=== PATIENT | female | born 1965 | race Caucasian/White ===

== ENCOUNTER 2023-12-20 08:23 | Emergency (ER) | payer OTHER, SELFPAY ==
--- NOTE | ~2023-12-20 | XR_ITS ---
EXAMINATION: XR foot RT min 3V DATE: 12/20/2023 08:44 INDICATION: Right foot injury. TECHNIQUE: 4 views of right foot were obtained. COMPARISON: None. FINDINGS: There are changes of bunionectomy. There is an oblique fracture of neck of fifth metatarsal . The distal fracture fragment demonstrates 2 mm medial plantar displacement. 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 There is an enthe sophyte at plantar aspect of calcaneal tuberosity. IMPRESSION: 1. Oblique fracture of neck of fifth metatarsal. Reviewed, dictated and finalized at location A.
--- NOTE | 2023-12-20 08:27 | ED.LOWEXIN ---
HPI - Extremity Injury (Lower) General Chief Complaint: Extremity Injury, Lower Stated Complaint: twisted right foot Time Seen by Provider: 12/20/23 08:27 Source: patient Mode of arrival: ambulatory Limitations: no limitations History of Present Illness HPI Narrative: Vanda is a 58 year old female patient presenting to the clinic today with complaints of pain to the right foot after twisting it yesterday. She reports she is having pain over the right 5th metatarsal. Bruising and swelling noted. Related Data Home Medications Medication Instructions Recorded Confirmed escitalopram oxalate 10 mg tablet 10 mg PO AC 12/20/23 12/20/23 progesterone micronized 200 mg 200 mg PO DAILY 12/20/23 12/20/23 capsule spironolactone 50 mg tablet 50 mg PO AC 12/20/23 12/20/23 Allergies Allergy/AdvReac Type Severity Reaction Status Date / Time Penicillins Allergy Unknown Verified 12/20/23 08:37 Review of Systems Review of Systems: Pertinent positives per HPI. Patient denies any fever, chills, rash, headache, visual changes, dizziness, cough, runny nose, sore throat, shortness of breath, chest pain, palpitations, nausea, vomiting, diarrhea, constipation, abdominal pain, or any urinary issues. PMFSH Comments At the time of my signature, I reviewed and agree with the nursing past medical, surgical, social, and family history. There is no relevant family history pertinent to the patient complaint. Exam Narrative: General: Well-developed, well nourished, in no apparent distress Head: Normocephalic, atraumatic. Cardio: Regular rate and rhythm, s1 and s2 normal, no murmur appreciated. Resp: Clear to auscultation bilaterally, no rhonchi, rales, wheezing or rubs. Musculoskeletal: No deformity, bruising and swelling noted over the right 5th distal metatarsal, tender to palpation over this area, able to move her 5th toe but this causes pain over the distal 5th metatarsal, grossly normal range of motion, muscle strength strong and equal, peripheral pulse strong, no cyanosis, normal gait and station Course Course Emergency Course: Portions of this record may have been created with voice recognition software. Level of Care: Express Care Visit Vital Signs Vital signs: Vital signs reviewed MDM - Extremity Injury (Lower) MDM Narrative Medical decision making narrative: At the time of visit patient is resting comfortably on the exam table. Patient appears to be nontoxic. Diagnostics: X-ray of the right foot shows an closed 2mm displaced oblique fracture of neck of the fifth metatarsal. Plan: Will give the patient a postop shoe and Noel wrap. Recommend purchasing a walking boot if this is more comfortable for the patient. Follow-up with podiatry as soon as possible. Supportive measures were discussed with the patient and they voiced understanding discharge instructions and agrees to treatment plan. Return precautions reviewed Differential Diagnosis Differential diagnosis: Likely other (Foot fracture, foot sprain, soft tissue injury, contusion) Imaging Data Radiologist's impression: ITS Impressions Foot X-Ray 12/20/23 08:45 IMPRESSION: 1. Oblique fracture of neck of fifth metatarsal. Discharge Plan Discharge Clinical Impression: Metatarsal bone fracture Qualifiers: Encounter type: initial encounter Metatarsal bone: fifth Fracture type: closed Fracture alignment: displaced Laterality: right Qualified Code(s): S92.351A - Displaced fracture of fifth metatarsal bone, right foot, initial encounter for closed fracture Patient Disposition: Home, Self-Care Condition: Stable Instructions: Antibiotic Form, Foot Fracture in Adults (ED) Additional Instructions: X-ray shows a closed oblique 2 mm displaced fracture of the right 5th metatarsal Rest, ice, elevate, and wear noel wrap as directed Wear postop shoe when walking/bearing weight- may purchase a walking boot as discussed. Tylenol/motrin
[2023-12-20 08:45] VITALS: BP 134/81; PULSE 73; RESP 16; TEMP 36.8; O2SAT 100
[2023-12-20 08:47] VITALS: BP 134/81; PULSE 73; RESP 16; TEMP 36.8; O2SAT 100
== END 2023-12-20 09:13 | disposition home or self-care (01) ==
PROVIDERS: Emergency Provider Nurse Practitioner Family; PCP Internal Medicine
DX: S92.351A Displaced fracture of fifth metatarsal bone, right foot, initial encounter for closed fracture (principal); X50.9XXA Other and unspecified overexertion or strenuous movements or postures, initial encounter; F41.9 Anxiety disorder, unspecified
CPT/HCPCS: 73630; 99214; G0463